=== PATIENT | male | born 1995 | race Caucasian/White ===

== ENCOUNTER 2022-01-14 13:47 | Emergency (ER) | payer SELFPAY ==
[~2022-01-14] VITALS: Ht 182.9 cm; Wt 100.0 kg
[2022-01-14 13:58] VITALS: TEMP 98.6
[2022-01-14 15:40] VITALS: BP 137/96; PULSE 89
== END 2022-01-14 15:41 | disposition home or self-care (01) ==
LOC: COL.ER 13:47
DX: S01.111A Laceration without foreign body of right eyelid and periocular area, initial encounter (principal); Z23 Encounter for immunization; W22.8XXA Striking against or struck by other objects, initial encounter

== ENCOUNTER → 2022-01-20 | Outpatient (CLI) | payer SELFPAY | LOC: COL.ER 08:08 | DX: Z48.02 Encounter for removal of sutures (principal) ==

== ENCOUNTER → 2022-01-20 | Outpatient (CLI) | payer SELFPAY ==
[2022-01-20 10:29] VITALS: BP 160/95; PULSE 68; TEMP 97.8
== END ==
LOC: COL.ER 09:35
DX: Z48.02 Encounter for removal of sutures (principal)